=== PATIENT | male | born 1975 | race Caucasian/White ===

== ENCOUNTER 2022-01-07 07:09 | Day surgery (SDC) | payer BC, SELFPAY ==
[2022-01-07] VITALS (10 sets, daily range): BP systolic 128–159; BP diastolic 75–100; PULSE 56–78; RESP 14–16; TEMP 36.2–36.4; O2SAT 93–97; BMI 29.8
[2022-01-07] MEDS: LACTATED RINGERS 1000 ML 1,000 ML 100 ML IV (07:00)
[2022-01-07] MEDS: CEFAZOLIN 2 GM in 0.9 % SODIUM CHLORIDE Mini-bag 100 ML IVPB (08:52)
--- NOTE | 2022-01-07 09:38 | W.ANESCHARGE ---
Anesthesia Charges Start Date/Time Anesthesia Start Date: 01/07/22 Anesthesia Start Time: 08:39 Stop Date/Time Anesthesia Stop Date: 01/07/22 Anesthesia Stop Time: 09:32 Summary Emergency: No
[2022-01-07] MEDS: OxyCODONE/APAP 5-325 TABLET 1 TAB PO (10:29)
--- NOTE | 2022-01-07 11:21 | SUR.PHASEII ---
Pt tolerated water, juice, and toast & a pain pill. Pt verbalized understanding of discharge instructions and readiness to be discharged.
--- NOTE | 2022-01-15 10:28 | P.ORPRC_ITS ---
Procedure Note Date of procedure: 01/15/22 Procedure: PREOPERATIVE DIAGNOSIS: 1. Left knee medial meniscus tear POSTOPERATIVE DIAGNOSIS: 1. Left knee medial meniscus tear PROCEDURE: 1. Left knee arthroscopic partial medial menisectomy SURGEON: Guerrero Conn M.D. [employer]ATION [employer]: Bronson Narayan PA-C. Of note, an assistant plant control operator was critical for this case to aid in patient positioning, knee manipulation, instrument exchange, and closure. ANESTHESIA: Spinal EBL: 2ml TOURNIQUET: 30 min at 300 torr COMPLICATIONS: None evident INDICATIONS: The patient is a pleasant 46-year-old male who has experienced left knee pain particularly with any twisting or turning. Physical exam was concerning for medial meniscus tear, this was confirmed on MRI. He does have a history of PMM in the remote past performed by Dr. Gonzales. He did well for number of years. Unfortunately, has had recurrent pain now as noted in our last clinic visit. Additionally, attempted nonoperative management has been tried, and failed. Thus, surgery was recommended. FINDINGS: Complex tearing of the posterior horn to midbody medial meniscus. Evidence of the previous partial medial meniscectomy is noted, but this is a distinctly new tear. Posterior root remained intact. ACL and PCL were intact robust. Lateral compartment showed intact lateral meniscus and intact articular cartilage. Patellofemoral compartment also showed relatively healthy chondral surfaces. No loose bodies. DESCRIPTION OF PROCEDURE: After a thorough discussion of risks, benefits, and alternatives, the patient was brought to the operating room and placed upon the operating table. Induction of anesthesia was undertaken as previously noted. 2g iv Ancef was administered within 1 hr of incision preoperatively. Appropriate time-out was performed identifying proper patient, site, and procedure. The left lower extremity was prepped and draped in the appropriate sterile fashion using ChloraPrep. The limb was exsanguinated and tourniquet inflated. Anterolateral and anteromedial portals were established with an 11 blade, and a diagnostic arthroscopy was performed. This identified the findings as noted above. Following the diagnostic arthroscopy, a partial medial menisectomy was performed with the combination of basket forceps and a motorized shaver. Following this, the meniscus was re-probed and found to be stable. Approximately 25 % of the overall remaining meniscus required resection. At this stage, the shaver was reinserted into the suprapatellar pouch and all remaining meniscal debris was evacuated. Instruments were removed, excess fluid was drained, and closure performed with 4-0 Monocryl with Steri-Strips. Dressings were applied, the tourniquet deflated, and the patient was awoken from anesthesia and transferred to the PACU in stable condition. PLAN: 1. Weightbear as tolerated operative extremity. Crutch / walker ambulation assistance PRN. Straight leg raise to be initiated starting tomorrow by the patient. 2. Ice, acetominophen and/or ibuprofen, and Percocet for pain as needed. 3. Knee range of motion and quad sets/straight leg raise regularly 4. Follow up with PA visit in 7-10 days. for a wound check. Initiate physical therapy at that time
== END 2022-01-07 11:18 | disposition home or self-care (01) ==
PROVIDERS: Visit Provider Orthopaedic Surgery Sports Medicine
PROC: (CPT 29870; principal; 2022-01-07 08:45)
DX: M23.222 Derangement of posterior horn of medial meniscus due to old tear or injury, left knee (principal)
CPT/HCPCS: 29881; 01400; A9270; J0690; J1100; J1170; J2250; J2405; J3010; J7120